=== PATIENT | female | born 1950 | race Caucasian/White ===

== ENCOUNTER 2020-05-17 06:34 | Day surgery (SDC) | payer MEDICARE ==
[~2020-05-17] VITALS: Ht 157.5 cm; Wt 84.5 kg
[2020-05-17] MEDS ORDERED: VENLAFAXINE HCL75 M1 PO (06:52)
[2020-05-17] MEDS ORDERED: VENLAFAXINE HC150 MG PO (06:52)
[2020-05-17] MEDS ORDERED: TEMAZEPAM15 MG PO (06:52)
[2020-05-17] MEDS ORDERED: VITAMIN C60 MG (06:53)
[2020-05-17] MEDS ORDERED: LEVOTHYROXINE137 MCG PO (06:53)
[2020-05-17] MEDS ORDERED: ALPRAZOLAM0.5 MG PO (06:53)
[2020-05-17] MEDS ORDERED: VITAMIN D325 MC2 (06:54)
[2020-05-17] MEDS ORDERED: VITAMIN B122500 MCG PO (06:54)
[2020-05-17] MEDS ORDERED: POTASSIUM99 M1 PO (06:55)
[2020-05-17] MEDS ORDERED: MAGNESIUM30 MG (06:55)
--- NOTE | 2020-05-17 08:16 | NUR ---
05/17/20 0816 Nasreen Ferrer 0812- PT ARRIVES TO PACU AWAKE AND TALKING. RESP EVEN AND UNLABORED. OXYGEN SAT MID TO HIGH 90'S ON 2L VIA NC. PT REPORTS NO PAIN OR NAUSEA. DISCUSSED WITH PT ABOUT PASSING FLATUS IF HER ABD IS CRAMPING. PT STATES UNDERSTANDING.
--- NOTE | 2020-05-18 15:36 | PATH ---
[facility] [address] [place], [place] [address] Signed SPECIMEN(S): A HEPATIC FLEXURE POLYP SPECIMEN SOURCE: A. HEPATIC FLEXURE POLYP CLINICAL HISTORY: Colonoscopy with poss. biopsies. History of colitis, history of bowel obstruction. MICROSCOPIC DESCRIPTION: Histologic sections of all submitted blocks are examined by light microscopy. These findings, together with the gross examination, support the pathologic diagnosis. FINAL PATHOLOGIC DIAGNOSIS: Hepatic flexure polyp: - Tubular adenoma (two fragments). JVR:smh:C2NR GROSS DESCRIPTION: The specimen, labeled "NH, 1," and designated on the requisition "hepatic flexure polyp," is received in formalin and consists of three triplett soft tissue fragments that measure 0.2-0.6 cm in greatest dimension. The specimen is entirely submitted in cassette (A1). AT (under the direct supervision of a pathologist) The Gross Description was prepared using a voice recognition system. The report was reviewed for accuracy; however, sound-alike word errors, addition and/or deletions may occur. If there is any question about this report, please contact Client Services. PERFORMING LABORATORY: The technical component was performed by [employer], [address] [place] [id number] (Lab Aid: Florence Peerz MD; CLIA# [id number]). Professional interpretation was performed by [employer], [facility], [address] [place] [id number]. Diagnostician: Hong Page MD Pathologist Electronically Signed 05/18/2020 PATIENT NAME: JORDY BARBER PATHOLOGY DATE OF : 50 REPORT #: [id number] PHYSICIAN: [facility] PCP: MARCELINO CONDE MD REPORT IS CONFIDENTIAL AND NOT TO BE RELEASED WITHOUT AUTHORIZATION [address] [place], [place] [address] Signed Copies: ~ PATIENT NAME: JORDY BARBER PATHOLOGY DATE OF : 50 REPORT #: [id number] PHYSICIAN: [facility] PCP: MARCELINO CONDE MD REPORT IS CONFIDENTIAL AND NOT TO BE RELEASED WITHOUT AUTHORIZATION
--- NOTE | 2020-05-19 15:19 | OR ---
[facility] [address] [place], [place] [address] Signed DATE OF OPERATION: 05/17/2020 SURGEON: Dahlia Quiñones MD PREOPERATIVE DIAGNOSIS: Colon surveillance, last colonoscopy normal in 2008. POSTOPERATIVE DIAGNOSIS: Small flat polyp at hepatic flexure (excised). PROCEDURE: Total colonoscopy to cecum with cold snare polypectomy x1. ANESTHESIA: Intravenous sedation, fentanyl 150 mcg, Versed 8 mg. INDICATION: This 70-year-old white woman is a patient of Dr. Hong Mak. She last underwent colonoscopy by [facility] in 2008, which was normal. She had undergone colonoscopy in 2002, which showed history of colitis of some sort. She is symptom free currently. She is admitted at this time to undergo colonoscopy. Notably, her COVID test is negative preoperatively. FINDINGS: The prep was excellent. Complete colonoscopy was undertaken to the cecum without question with easy identification of the ileocecal valve and the appendiceal orifice. There was a small flat polyp noted at hepatic flexure, which was excised with cold snare polypectomy technique. The remaining colon was normal. DESCRIPTION OF PROCEDURE: The patient was brought to the endoscopy suite and placed in lateral decubitus position, given intravenous sedation to the point of slurred speech and nystagmus. Digital rectal examination was normal. The Olympus video colonoscope was passed in the rectum and manipulated throughout the colon noting a small flat polyp at the hepatic flexure. This was excised with cold snare technique. The scope was pushed beyond this ultimately to the cecum, the ileocecal valve and appendiceal orifice were normal. Scope was withdrawn from that point and examination showed no abnormality, specifically no additional polyps, diverticular formation, colitis, or cancer. Retroflexed view of the rectum did show a hypertrophied anal papilla. There were no other findings of concern. The scope was removed. The patient was taken to the recovery room in good condition. Electronically Signed By: DAHLIA QUIÑONES MD 05/19/20 1519 PATIENT NAME: JORDY BARBER OPERATIVE REPORT DATE OF : 50 REPORT #: [id number] PHYSICIAN: DAHLIA QUIÑONES MD PCP: MARCELINO MAK MD REPORT IS CONFIDENTIAL AND NOT TO BE RELEASED WITHOUT AUTHORIZATION [facility] [address] [place] [id number] Signed CONCLUDING DIAGNOSIS: Flat polyp x1 excised. PLAN: Recommend a repeat colonoscopy in 5 years sooner if clinically indicated. If pathology report warrants sooner surveillance (dysplasia ) that will be arranged. MD TRAY Haq/MODL /[id number] cc: Marcelino Mak MD Copies: MARCELINO MAK MD ~ Electronically Signed By: DHALIA QUIÑONES MD 05/19/20 1519 PATIENT NAME: JORDY BARBER OPERATIVE REPORT DATE OF : 50 REPORT #: [id number] PHYSICIAN: DAHLIA QUIÑONES MD PCP: MARCELINO MAK MD REPORT IS CONFIDENTIAL AND NOT TO BE RELEASED WITHOUT AUTHORIZATION
== END 2020-05-17 08:50 | disposition home or self-care (01) ==
LOC: DS 06:34 → OPS 06:34 → DS 06:45 → OPS 06:45
PROVIDERS: ATTEND Surgery
PROC: 0DBL8ZX Excision of Transverse Colon, Via Natural or Artificial Opening Endoscopic, Diagnostic (ICD-10-PCS; principal; 2020-05-17 06:45)
DX: Z12.11 Encounter for screening for malignant neoplasm of colon (principal); D12.3 Benign neoplasm of transverse colon; K62.89 Other specified diseases of anus and rectum; N39.3 Stress incontinence (female) (male); E03.9 Hypothyroidism, unspecified; F17.210 Nicotine dependence, cigarettes, uncomplicated; Z79.890 Hormone replacement therapy; Z79.899 Other long term (current) drug therapy; Z87.19 Personal history of other diseases of the digestive system
CPT/HCPCS: 99153; G0500; J2250; J3010; J7121

== ENCOUNTER 2021-07-15 07:22 | Observation (INO) | payer MEDICARE ==
[~2021-07-15] VITALS: Ht 165.1 cm; Wt 61.4 kg
[~2021-07-15 07:22] MED LIST: ALPRAZOLAM0.5 MG PO; LEVOTHYROXINE137 MCG PO; MAGNESIUM30 MG; POTASSIUM99 M1 PO; TEMAZEPAM15 MG PO; VENLAFAXINE HC150 MG PO; VENLAFAXINE HCL75 M1 PO; VITAMIN B122500 MCG PO; VITAMIN C60 MG; VITAMIN D325 MC2
--- NOTE | 2021-07-15 09:19 | NUR ---
0839 PT REPORTS FEELING ANXIOUS AND NERVIOUS, RECIEVED ORDER FOR VERSED FROM DAHLIA TINEO.
--- NOTE | 2021-07-15 14:48 | NUR ---
07/15/21 1447 Corina Orellana 1449 PATIENT ARRIVES TO PACU UNRESPONSIVE TO PAIN. ORAL AIRWAY IN PLACE. RESP EVEN AND UNLABORED, MASK AT 12 LITERS, DECREASED TO 6 LITERS. REQUIRES OCCASIONAL JAW THRUST, HOB ELEVATED.
--- NOTE | 2021-07-15 15:56 | NUR ---
1540 PT BACK TO ROOM FROM PACU AWAKE AND ALERT DENIES PAIN, REPORTS SORENESS IN RT EYE ADVISED NOT TO RUB EYE, PLACED COLD WET WASH CLOTH OVER RT EYE FOR PT COMFORT. DAUGHTER AT BEDSIDE. PT TAKING SIPS OF WATER TOLERATES WELL. PT RESTING COMFORTABLY, WARM BLANKETS PLACED ON PT CALL LIGHT WITHIN REACH.
--- NOTE | 2021-07-15 17:05 | NUR ---
650ML OF CLEAR YELLOW URINE DRAINED FROM LUGO BAG. 10ML OF PINK FLUID DRAINED FROM MAIRA DRAIN.
--- NOTE | 2021-07-15 17:42 | NUR ---
1730 PT TRANSFERED TO MED SURG, DENIES PAIN AND NAUSEA, SHE CONTINUES TO COMPLAIN OF PAIN AND SCRATCHY FEELING TO HER RT EYE. DRESSING CLEAN AND DRY, MINIMAL DRAINAGE FROM MAIRA DRAIN, LUGO CATH PATENT.
--- NOTE | 2021-07-15 17:53 | NUR ---
IV SALINE LOCKED, 200ML OF IV FLUID GIVEN IN DAY SURGERY,
--- NOTE | 2021-07-15 18:43 | NUR ---
PT BROUGHT TO ROOM FROM PACU. PT ALERT, ORIENTED, DRESSING AND MAIRA DRAIN IN PLACE. SMALL AMOUNT SANGUINOUS DRAINAGE NOTED. CRUSHER MACHINE OPERATOR REPORTED THE PT SCRATCHED HER R EYE IN RECOVERY, VERBAL ORDER FROM DR QUIÑONES FOR ONE TIME PROPERACAINE DROPS TO BE PLACE DIN PT'S R EYE. PT REQUESTING TO HAVE LUGO REMOVED AND TO WALK AROUND ROOM. DAUGHTER AT BEDSIDE.
--- NOTE | 2021-07-15 19:15 | NUR ---
PER PT REQUEST, LUGO CATH D/C'D. PT TOLERATED WELL. PT UP, STEADY ON HER FEET, WALKED TO BATHROOM, STANDBY ASSIST ONLY. WAS ABLE TO PASS GAS, BUT NOT ABLE TO VOID. PT BACK IN BED, IS FEELING HOT AND SLIGHTLY NAUSEATED. ZOFRAN AND FAN GIVEN. PROPARACAINE EFFECTIVE IN RELIEVING R EYE PAIN. MINIMAL SANGUINOUS DRAINAGE NOTED IN LORENZA DRAIN. PT REPORTING SOME PAIN AND IS REQUESTING PAIN MEDS.
--- NOTE | 2021-07-16 02:59 | NUR ---
REQUESTS PAIN MED FOR PAIN TO THROAT. DESCRIBES THE PAIN THROBBING. DENIES ANY NUMBNESS OR TINGLING.
--- NOTE | 2021-07-16 03:43 | NUR ---
PT'S CPOX WAS BEEPING. PT'S O2 WAS 88%. PLACED PT ON 2LNC, SHE IS NOW AT 91%. SBA TO RESTROOM AND BACK TO BED. PT DENIES FURTHER NEEDS. CALL LIGHT IS CLOSE. IV IS INFUSING FINE.
--- NOTE | 2021-07-16 05:44 | NUR ---
PT HAS BEEN ON CONTINOUS O2 SAT MONITORING ALL SHIFT. DENIES ANY SWALLOWING ISSUES. DENIES ANY NUMBNESS OR TINGLING. WAS MEDICATED X2 FOR C/O THROBBING PAIN TO THROAT AND HUTTON. HOB ELEVATED 45 DEGREES ALL SHIFT. HAS GOTTEN OOB TO BR MULTIPLE TIMES WITHOUT ISSUE.
--- NOTE | 2021-07-16 07:30 | NUR ---
THIS RN RECEIVED SHIFT REPORT FROM TRAVEL MCKENZIE RN. PATIENT AWAKE IN BED WATCHING TV. PATIENT DENIES ANY CARE NEEDS AT THIS TIME. CALL LIGHT IS IN REACH.
--- NOTE | 2021-07-16 08:25 | NUR ---
PATIENT GIVEN ALL AM MEDS. PATIENT DENIES NEEDS FOR PAIN OR ANXIETY MEDS. AM ASSESSMENT COMPLETE. SURGICAL SITE C/D/I. NO PROBLEMS SWALLOWING OR SHORTNESS OF BREATH. CALL LIGHT IN REACH AND BREAKFAST SERVED.
[2021-07-16] MEDS ORDERED: LEVOTHYROXINE125 MCG PO (09:11)
[2021-07-16] MEDS ORDERED: TEMAZEPAM30 MG PO (09:12)
--- NOTE | 2021-07-16 10:45 | NUR ---
PATIENT'S PAIN GONE AFTER BARRETT HINOJOSA GAVE ORAL PAIN MEDS AT 0944. PATIENT DENIES ANY OTHER CARE NEEDS AT THIS TIME. PATIENT WILL BE DICHARGED TODAY.
[2021-07-16] MEDS ORDERED: OXYCODON-ACETA1 EAC2 PO (12:04)
[2021-07-16] MEDS ORDERED: ACETAMINOPHEN500 MG PO (12:04)
[2021-07-16] MEDS ORDERED: NICOTINE1 EAC2 TD (12:04)
[2021-07-16] MEDS ORDERED: CALCIUM CARBON200 MG PO (12:05)
--- NOTE | 2021-07-24 16:30 | OR ---
[facility] [address] [place], [place] [address] Signed DATE OF OPERATION: 07/15/2021 SURGEON: Dahlia Quiñones MD PREOPERATIVE DIAGNOSES: 1. Symptomatic large left thyroid mass; FNA insufficient tissue. 2. Multiple lung nodules, unknown etiology. POSTOPERATIVE DIAGNOSES: 1. 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 PROLONGED COMPLICATED AND DIFFICULT 2. Total thyroidectomy. 3. Autotransplant probable parathyroid tissue to right sternocleidomastoid muscl ANESTHESIA: General endotracheal, Dahlia Nicolas CRNA INDICATIONS: This 71-year-old white woman is a patient of Miranda Smith. She is on thyroid replacement therapy, long standing. She recently underwent a screening low-dose chest CT as she does smoke about a pack of cigarettes a day and has for many years. This showed infiltrative changes of the lungs bilaterally as well as enlarged left thyroid mass. The repeat low-dose chest CT scan was performed a month later per radiologist recommendation, which showed resolution of the infiltrative changes, but bilateral pulmonary nodules suggestive of metastatic disease. Her thyroid mass is quite large and noted to cause deviation of the trachea or at least narrowing of it. The right lobe appeared reasonably normal. Palpation of the thyroid mass shows it to be quite bulky. There is some associated voice change that she notes, though not hoarseness per se. The thyroid function tests have shown normal T4 and T3, but diminished TSH; her thyroid replacement dose has been decreased lately. I performed ultrasound-guided fine-needle aspiration biopsy of the left thyroid lobe, which showed inadequate specimen. This was slightly amazing considering the mass was quite bulky and needle certainly pass through the abnormality. Ultrasound examination had shown small nodules of the right lobe, but the dominant nodule on the left was certainly greater than 4 cm. Electronically Signed By: DAHLIA QUIÑONES MD 07/24/21 5023 PATIENT NAME: JORDY BARBER OPERATIVE REPORT DATE OF : 50 REPORT #: [id number] PHYSICIAN: DAHLIA QUIÑONES MD PCP: MIRANDA SMITH PAC REPORT IS CONFIDENTIAL AND NOT TO BE RELEASED WITHOUT AUTHORIZATION [facility] [address], [place] [address] scan of the chest with formal technique including IV contrast was not obtained as had been anticipated; abdominal and pelvic CT scan were performed, which showed no evidence of problematic lesions to account for pulmonary metastases. The patient is symptomatic regarding the thyroid mass. I have recommended left thyroid lobectomy with frozen pathology to be obtained and possible total thyroidectomy depending on those findings. It is my suspicion that the pulmonary lesions are related to this thyroid mass as it has been rapid in its onset and this despite long-standing thyroid replacement therapy. I discussed with the patient and her daughter the risk of bleeding, infection, cosmetic deformity, failure to cure the problem, recurrent and external laryngeal nerve injury, hypoparathyroidism either short-term or long-term, as well as other unforeseen complications given her smoking history. Understanding all this, she wished to proceed. FINDINGS: The mass was clearly malignant upon inspection. The tumor had desmoplastic continuity to the sternal thyroid muscle, which was resected in continuity with it. The sternohyoid muscle was able to be . It was impressively dense in its attachments posteriorly. There was no invasion to the jugular or carotid vessels. The superior pole on the left side extended high up into the neck and lower somewhat below the clavicle. A small portion of the lesion had to be left in situ as resection of that lobe would necessitate recurrent laryngeal nerve excision and given her metastatic disease (probably) that would be problematic. The right lobe was quite small indeed. Two parathyroid glands were identified posteriorly and were left in situ. Some parathyroid tissue from the left side was noted as excised and later we planted into the right sternocleidomastoid muscle. DESCRIPTION OF PROCEDURE: The patient was brought to the operating room and given a general endotracheal anesthetic. A shoulder roll was placed. A Arroyo catheter was placed. Her arms were placed at the side. Mild neck extension was maintained with a shoulder roll and position of the bed to a tejal lounge position. The neck was prepared with a chlorhexidine solution and draped sterilely. A natural skin crease was used for the incision. This was undertaken with a 15 blade, extending from the medial border of the sternocleidomastoid muscle bilaterally. Dissection was carried through the dermis with sharp dissection and electrocautery used for the subcutaneous tissue and platysmal layer. Superior and inferior flaps were developed with blunt and electrocautery dissection. The strap muscles including the sternohyoid and sternothyroid were tensely distended against the left lobe, which was quite bulky Electronically Signed By: DAHLIA QUIÑONES MD 07/24/21 7456 PATIENT NAME: JORDY BARBER OPERATIVE REPORT DATE OF : 50 REPORT #: [id number] PHYSICIAN: DAHLIA QUIÑONES MD PCP: MIRANDA SMITH PAC REPORT IS CONFIDENTIAL AND NOT TO BE RELEASED WITHOUT AUTHORIZATION [address] [address] Signed indeed. The midline avascular plane was identified and the sternohyoid muscle free with blunt and electrocautery dissection. The sternothyroid muscle, however, was densely contiguous with the anterior aspect of the mass. Examination of the mass showed it almost certainly to be malignant. It is quite firm and although spongy in some areas, rock-hard in others. It was uncertain if resection would even be possible. The appearance was somewhat suggestive, though not diagnostic of anaplastic carcinoma, which of course is invariably fatal. With meticulous care, lateral dissection was undertaken, mindful of position of the left carotid and left jugular veins. Superior dissection was undertaken and although quite densely inflammatory and adherent to surrounding structures, multiple clips used to secure small blood vessels. The left upper pole extended cephalad further than usual. This was meticulously dissected free. Attention was turned towards the lateral aspect and inferior aspect. With similar dissection, more and more mobility could be afforded to lesion. It appeared uncertain that the lesion could truly be excised. On that basis, a small nodular portion of it not far from the superior aspect of the isthmus was excised with cold knife and passed for frozen pathology. Frozen pathology returned under the review of Dr. 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 Mindful that the lesion itself was distorting the trachea and she was quite symptomatic from it. This deemed advisable to resect if possible. With similar technique as described and meticulous dissection so as to avoid important structures nearby, small blood vessels and adhesions were freed and secured with clips. With a fair amount of effort and time, the left thyroid lobe was able to be rotated towards the midline. The posterior elements were meticulously dissected free as well. There appeared to be a segment of tumor, which was likely posterior to the recurrent nerve as it was identified entering into the larynx. That area was deemed appropriate to leave in situ under the circumstances. Medial aspect of the left lobe was freed with usual technique and clips applied instead of silk ties as is usually my approach considering the density of the left thyroid lobe itself. Inferior mobilization was undertaken as well. Ultimately, the posterior aspect of the tumor medial to the posterior elements was dissected free with meticulous care using electrocautery ultimately encountering the trachea. The tracheal plane was well identified and although tumor did not grossly penetrate into it that I could tell, did have a granular surface indicative of chronic inflammatory change. The wound was packed and attention turned towards the right thyroid lobe. This lobe was entirely normal and indeed was rather small. Sharp dissection was used to free the strap muscles from the right lobe, which was easily identified and application Electronically Signed By: DAHLIA QUIÑONES MD 07/24/21 1630 PATIENT NAME: JORYD BARBER OPERATIVE REPORT DATE OF : 50 REPORT #: [id number] PHYSICIAN: DAHLIA QUIÑONES MD PCP: MIRANDA SMITH PAC REPORT IS CONFIDENTIAL AND NOT TO BE RELEASED WITHOUT AUTHORIZATION [facility] [address], [place] [address] Signed of 4-0 silk ties and small clips to the superior pole and inferior pole and midportion of the thyroid undertaken. The thyroid lobe was rotated to the midline more fully. The posterior elements allowed to remain in situ and the parenchyma divided at the ligament of Moss with sharp dissection. This freed the entire specimen completely. The wound was packed with gauze. Examination of the thyroid in total showed one small nodule likely to represent parathyroid tissue, probably from the left lower pole. This was morcellated and underwent implantation in the right sternocleidomastoid muscle with security of the muscle fibers with 3-0 Vicryl. A large clip was applied to the area for future reference as necessary. Irrigation was undertaken with saline solution and hemostasis was quite good overall. A Gel-Foam and Tisseel (fibrin glue) was applied to the superior polar areas bilaterally as well as the divided parenchyma on the left and right sides. Irrigation was undertaken more fully. The frozen pathology (#2) was not performed as the pathologist was no longer on the premises. Plans were then made for closure. The midline strap muscles were reapproximated with interrupted 2-0 Vicryl and a 7 mm flat Brayan drain was secured into the left and right sides. Not mentioned previously was the use of the Tisseel with the Aerosolizer device, which provided a fair amount of competence as to good hemostasis in the area. The strap muscles were reapproximated with interrupted 2-0 Vicryl and platysmal layer reapproximated with interrupted 3-0 Vicryl. The skin was closed with a running subcuticular 3-0 Vicryl bilaterally and drain secured with a nylon stitch and applied to bulb suction, having been brought out the midportion of the wound. The patient was extubated without problem and transferred to the recovery room in good condition. The operation was extremely prolonged and difficult, but was accomplished safely and without known complications. MD TRAY Haq/HEATHER /[id number] cc: Miranda Smith Electronically Signed By: DAHLIA QUIÑONES MD 07/24/21 1630 PATIENT NAME: JORDY BARBER OPERATIVE REPORT DATE OF : 50 REPORT #: [id number] PHYSICIAN: DAHLIA QUIÑONES MD PCP: MIRANDA SMITH PAC REPORT IS CONFIDENTIAL AND NOT TO BE RELEASED WITHOUT AUTHORIZATION [facility] [address], [place] [address] Signed Jersey Sigala MD, PH.D. Copies: JERSEY SIGALA ~ Electronically Signed By: DAHLIA QUIÑONES MD 07/24/21 1630 PATIENT NAME: JORDY BARBER OPERATIVE REPORT DATE OF : 50 REPORT #: [id number] PHYSICIAN: DAHLIA QUIÑONES MD PCP: MIRANDA SMITH PAC REPORT IS CONFIDENTIAL AND NOT TO BE RELEASED WITHOUT AUTHORIZATION
--- NOTE | 2021-07-28 16:46 | PATH ---
[facility] [address] [place], [place] [address] Signed SPECIMEN(S): A PORTION OF ISTHMUS SPECIMEN(S): B LEFT THYROID LOBE SPECIMEN(S): C LEFT SUPERIOR POLE LYMPH NODE SPECIMEN(S): D THYROID TUMOR SPECIMEN SOURCE: A. PORTION OF ISTHMUS B. LEFT THYROID LOBE C. LEFT SUPERIOR POLE LYMPH NODE D. THYROID TUMOR CLINICAL HISTORY: Thyroid mass. FROZEN SECTION DIAGNOSIS: A. 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 Carlyn Franco M.D. 07/15/21, 11:28 a.m. Frozen section diagnosis called to Dr. French. The Gross Description was prepared using a voice recognition system. The report was reviewed for accuracy; however, sound-alike word errors, addition and/or deletions may occur. If there is any question about this report, please contact Client Services. FINAL PATHOLOGIC DIAGNOSIS: A. Isthmus, biopsy: - Malignant spindle cell neoplasm, final classification pending consultation. - See Comment. B. Thyroid, left lobe, hemithyroidectomy: - Malignant spindle cell neoplasm, final classification pending consultation. - Tumor size: 6.3 x 4.4 x 3.2 cm. - Tumor necrosis: Present (10-20%). - Mitotic rate: 18 per 10 hpf. - Angioinvasion: Present, extensive. - Extra thyroidalextension: Present, macroscopic and histologically confirmed: Invading strap muscles. - Margin status: Margins involved by carcinoma. - Two parathyroid glands present. - One lymph node with no evidence of malignancy. - See Comment. C. 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 - Skeletal muscle present, focally surrounded by tumor. - See Comment. D. Thyroid tumor, excision: - Malignant spindle cell neoplasm, final classification pending consultation. - See Comment. COMMENT: Sections demonstrate an infiltrative neoplasm comprised of spindled to ovoid cells with different growth patterns, including nests and irregular fascicles. Abundant tumor cell necrosis is present. The tumor has a rich vascular pattern and extensive vascular invasion is identified. The tumor entraps non-neoplastic thyroid follicles, but no background follicular or papillary thyroid carcinoma is identified. A panel of immunohistochemical stains (with appropriately staining controls) were performed. The tumor cells are positive for TLE1 and have patchy positivity for CD99, CD56, and SMA. The tumor cells are negative for ZACK, BCL2, pancytokeratin (AE1/AE3), CHRISSY, PAX8, TTF1, CK7, thyroglobulin, calcitonin, synaptophysin, S100, SOX10, CD34, CD31, STAT6, and Desmin. Ki-67 demonstrates an irregular pattern of staining, ranging from 10- 30% tumor cell positivity. 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 The case will be sent out for expert consultation including likely FISH studies and the results will be reported in an addendum. As part of [facility] Quality Improvement Program, this case was reviewed in consultation with multiple members of our pathology staff. Preliminary results were discussed with Dr. French on 07/22/21. NAL:ANNE:cml:C1NR MICROSCOPIC EXAMINATION: Histologic sections of all submitted blocks are examined by light microscopy. These findings, together with the gross examination, support the pathologic diagnosis. Note, PAX8 was performed on both blocks B1 and B7. GROSS DESCRIPTION: Four specimens are received in four containers, labeled "Heidi Barber." A. The specimen, labeled "SunilHeidi barahona," and designated on the requisition "portion of isthmus assess for anaplastic cancer," is received fresh for frozen PATIENT NAME: HEIDI BARBER PATHOLOGY DATE OF : 50 REPORT #: [id number] PHYSICIAN: BOLA HELTON PCP: MIRANDA SMITH PAC REPORT IS CONFIDENTIAL AND NOT TO BE RELEASED WITHOUT AUTHORIZATION [address] [address] Signed section diagnosis and consists of triplett-red soft tissue fragment that is 0.6 x 0.5 x 0.2 cm. The specimen is entirely submitted for frozen section resubmitted as received in cassette (A1). B. The specimen, labeled "Heidi Barber," and designated on the requisition "thyroid left lobe (single suture bagley the pyramidal lobe), double stitch bagley right normal lobe," is received fresh and placed into formalin and consists of a 64 g, oriented portion of thyroid. A double suture identifies the right normal lobe, which is 5.2 x 2.0 x 1.6 cm. A single suture identifies the pyramidal lobe and is 1.4 x 1.1 x 0.7 cm. The isthmus is a 2.8 x 2.5 x 2.6 cm. The left lobe is 6.7 x 3.7 x 3.4 cm. The external surface is pink with adherent red membranous tissue and possible skeletal muscle on the anterior aspect of the left lobe. The left lobe is markedly indurated and multilobulated. The posterior aspect of the specimen displays areas of disruption and irregularity The specimen is inked as follows: Anterior-superior blue, anterior-inferior green, and posterior black. The specimen is serially sectioned from left to right revealing a 6.3 x 4.4 x 3.2 cm, pale yellow-red, multilobulated and ill-defined mass. This mass involves the left lobe, isthmus, right lobe, and pyramidal lobe. The mass is 0.1 cm from the left anterior superior soft tissue resection margin, 0.1 cm from the left anterior inferior soft tissue resection margin, 0.1 cm from the anterior soft tissue resection margin on the isthmus, abuts the posterior soft tissue resection margin on the isthmus and left lobe, is 0.1 cm from the anterior superior and anterior inferior soft tissue resection margins on the right lobe, and is 0.5 cm from the posterior soft tissue resection margin on the right lobe. Possible gross extension into the skeletal muscle on the anterior inferior left lobe is submitted in cassette B1-B2. Uninvolved thyroid is grossly identified in the right lobe and is deep red and rubbery. Civil Project Engineer sections are submitted in 10 cassettes. Cassette summary: (B1-B2) mass to skeletal muscles, left inferior lobe (B3) mass to anterior superior soft tissue resection margin, left lobe (B4-B5) mass to posterior soft tissue resection margin, left lobe (B6) mass within isthmus (B7) mass within isthmus and pyramidal lobe (B8-B9) mass within right lobe (B10) uninvolved thyroid, right lobe C. The specimen, labeled "Heidi Barber, left superior pole," is received in PATIENT NAME: HEIDI BARBER PATHOLOGY DATE OF : 50 REPORT #: [id number] PHYSICIAN: BOLA HELTON PCP: MIRANDA SMITH PAC REPORT IS CONFIDENTIAL AND NOT TO BE RELEASED WITHOUT AUTHORIZATION [facility] [address], [place] [address] Signed formalin and consists of 1.3 x 0.7 x 0.5 cm, pink-white, indurated tissue fragment. The specimen is inked, sectioned, and entirely submitted in cassette (C1). D. The specimen, labeled "Heidi Barber, thyroid tumor," is received in formalin and consists of 6.2 x 5.5 x 1.8 cm aggregate of pale pink, rubbery and friable soft tissue. Serially sectioning reveals a pink-red, variegated cut surface. Civil Project Engineer sections are submitted in cassettes (D1-D6). FB (under the direct supervision of a pathologist) ADDITIONAL NOTES: Immunohistochemical and/or in situ hybridization studies were performed on this case with the appropriate positive controls that react as expected. This test was developed and its performance characteristics determined by [facility]. It has not been cleared or approved by the U.S. Food and Drug Administration. The FDA has determined that such clearance or approval is not necessary. This test is used for clinical purposes. It should not be regarded as investigational or for research. [facility] is certified under the Clinical Laboratory Improvement Amendments of 1988 (CLIA) as qualified to perform high complexity clinical laboratory testing. This assay has not been validated for specimens that have been decalcified. The technical component was performed by [facility], [address] [place] [address] (Pot Press Operator: Florence Perez MD; CLIA# [id number]). Professional interpretation [facility] [place] [address] (CLIA# [id number]). PERFORMING LABORATORY: Frozen section performed at [facility], [address] [place] [address] (CLIA# [id number]). The technical component was performed by [facility], [address] [place] [address] (Pot Press Operator: Florence Perez MD; CLIA# [id number]). [facility], [address] [place] [address] (CLIA# [id number]). Diagnostician: Carlyn Franco MD Pathologist PATIENT NAME: HEIDI BARBER PATHOLOGY DATE OF : 50 REPORT #: [id number] PHYSICIAN: BOLA HELTON PCP: MIRANDA SMITH PAC REPORT IS CONFIDENTIAL AND NOT TO BE RELEASED WITHOUT AUTHORIZATION [place] [address] Signed Electronically Signed 07/28/2021 Copies: ~ PATIENT NAME: SUNILHEIDIALEJANDRO BOSS PATHOLOGY DATE OF : 50 REPORT #: [id number] PHYSICIAN: BOLA PATHOLOGY PCP: MIRANDA SMITH PAC REPORT IS CONFIDENTIAL AND NOT TO BE RELEASED WITHOUT AUTHORIZATION
== END 2021-07-16 13:35 | disposition home or self-care (01) ==
LOC: DS 07:22 → DSVR 15:22 → MS 17:40
PROVIDERS: ADMIT Surgery; ATTEND Surgery
PROC: 0GBJ0ZZ Excision of Thyroid Gland Isthmus, Open Approach (ICD-10-PCS; 2021-07-15)
PROC: 0GSR0ZZ Reposition Parathyroid Gland, Open Approach (ICD-10-PCS; 2021-07-15)
PROC: 0GTK0ZZ Resection of Thyroid Gland, Open Approach (ICD-10-PCS; principal; 2021-07-15 07:30)
DX: C73 Malignant neoplasm of thyroid gland (principal); E03.8 Other specified hypothyroidism; F17.210 Nicotine dependence, cigarettes, uncomplicated; R91.8 Other nonspecific abnormal finding of lung field
CPT/HCPCS: 00320; 36415; 80053; 88305; 88307; 88341; 88342; 88360; G0378; J0131; J0171; J0330; J0690; J1100; J1720; J1885; J2250; J2405; J2704; J2765; J3010; J7121

== ENCOUNTER 2021-09-01 02:38 | Emergency (ER) | payer MEDICARE ==
[~2021-09-01] VITALS: Ht 165.1 cm; Wt 63.0 kg
[~2021-09-01 02:38] MED LIST changes: +ACETAMINOPHEN500 MG PO; +CALCIUM CARBON200 MG PO; +LEVOTHYROXINE125 MCG PO; +NICOTINE1 EAC2 TD; +OXYCODON-ACETA1 EAC2 PO; +TEMAZEPAM30 MG PO
--- OUTSIDE RECORDS SUMMARY | 2021-09-01 02:40 | XMS ---
PreManage Notification: JORDY BARBER Security Apple Picker Events No recent Security Events currently on file CRITERIA MET - [facility] CARE PROVIDERS MIRANDA SMITH Physician Clinic Lpn Current PHONE: Unknown Guevara has no Care Guidelines for this patient. EBryanna VISIT COUNT (12 MO.) 1 NORY Peralta TOTAL 1 NOTE: Visits indicate total known visits. ED/UCC VISIT TRACKING (12 MO.) 09/01/2021 02:38 N[facility] [place] TYPE: Emergency COMPLAINT: - RIGHT SIDE PAIN INPATIENT VISIT TRACKING (12 MO.) 07/15/2021 15:22 N[facility] [place] TYPE: Observation COMPLAINT: - LEFT THYROID LOBECTOMY,POSS TOTAL THYROIDECTOMY DIAGNOSES: - Other nonspecific abnormal finding of lung field - Nontoxic single thyroid nodule - Nicotine dependence, cigarettes, uncomplicated - Other specified hypothyroidism - Malignant neoplasm of thyroid gland [email or web address]
[2021-09-01] MEDS ORDERED: OXYCODONE HCL5 MG PO (05:16)
[2021-09-01] MEDS ORDERED: LIDODERM1 EACH TOP (05:16)
--- NOTE | 2021-09-04 17:07 | EKG ---
[facility] [address] [facility] [place] [address] Signed Normal sinus rhythm Possible Left atrial enlargement Borderline ECG No previous ECGs available Confirmed by MEGAN VERA MD ([id number]) on 09/04/2021 5:07:39 PM Electronically Signed By: MEGAN VERA MD 09/04/21 1707 PATIENT NAME: JORDY BARBER Electrocardiogram DATE OF : 50 PHYSICIAN: MEGAN VERA MD REPORT #: [id number] REPORT IS CONFIDENTIAL AND NOT TO BE RELEASED WITHOUT AUTHORIZATION
== END 2021-09-01 05:45 | disposition home or self-care (01) ==
LOC: ED 02:38
DX: M54.6 Pain in thoracic spine (principal); F17.200 Nicotine dependence, unspecified, uncomplicated; Z79.899 Other long term (current) drug therapy
CPT/HCPCS: 36415; 71045; 80053; 84484; 85025; 85379; 85730; 93005; 93010; 96374; 96375; 99284-25; J1170; J2270; J2405

== ENCOUNTER 2021-09-13 07:09 | Day surgery (SDC) | payer MEDICARE ==
[~2021-09-13] VITALS: Ht 165.1 cm; Wt 58.0 kg
[~2021-09-13 07:09] MED LIST changes: +LEVOFLOXACIN500 MG PO; +LIDODERM1 EACH TOP; +LOVENOX80 MG/0.8 SQ; +OXYCODONE HCL5 MG PO
[2021-09-13] MEDS ORDERED: ACETAMINOPHEN500 MG PO (09:41)
[2021-09-13] MEDS ORDERED: IBUPROFEN600 MG PO (09:41)
--- NOTE | 2021-09-13 10:01 | NUR ---
PT ALERT, ORIENTED AND SUPPORTED BY HER DAUGHTER RACHID. PT FEELS THIS WILL HELP HER IN HER ON-GOING GTZ WITH CANCER.ALL QUESTIONS ASKED ANSWERED, RACHID WILL REMAIN FOR DC. PT REQUESTED PRAYER, WILL FOLLOW NEEDED
--- NOTE | 2021-09-13 10:37 | NUR ---
09/13/[address] [place], [place] [address]Tyra acosta 0916 PT ARRIVED IN PACU SLEEPY WITH NO C/O'S. 0930 VISITING WITH STAFF. NO C/O'S. 0998 DR AT BEDSIDE. ALL QUESTIONS ANSWERED. 1000 GETTING DRESSED WITH STAND BY ASSIST. DC INSTRUCTIONS GIVEN. INSTRUCTED ON HOW TO FLUSH PEG TUBE AND GIVEN SYRINGE TO FLUSH IT WITH. ALL DAUGHTER AND PT'S QUESTIONS ANSWERED. 1016 LEFT VIA W/C.
--- NOTE | 2021-09-14 11:40 | OR ---
[facility] [address] [place], [place] [address] Signed DATE OF OPERATION: 09/13/2021 SURGEON: Dahlia Quiñones MD PREOPERATIVE DIAGNOSES: 1. Progressive inanition related to radiation therapy and chemotherapy. 2. 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 3. 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 Ongoing anticoagulation (Lovenox). POSTOPERATIVE DIAGNOSES: 1. Progressive inanition related to radiation therapy and chemotherapy. 2. 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 3. 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 Ongoing anticoagulation (Lovenox). PROCEDURES: 1. Upper endoscopy. 2. Percutaneous endoscopic gastrostomy tube placement. ANESTHESIA: Propofol infusion; preoperative antibiotic Ancef 2 g. INDICATIONS: This 71-year-old white woman is a patient of KATHERYN Ackerman and underwent a total thyroidectomy for a very large left thyroid mass several weeks ago with known multiple pulmonary lesions consistent with metastatic disease. 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 Postoperatively, she suffered an extensive thrombus of the left jugular innominate with the clot extending into the superior vena cava and has been on therapeutic Lovenox 80 mg subcutaneously b.i.d. since that time. She has been evaluated by Dr. Sigala and Dr. Dunn and is undergoing palliative chemo-radiation therapy. She has had progressive inanition related to difficulty swallowing, no doubt related to the therapeutic affects of radiation therapy. Electronically Signed By: DAHLIA QUIÑONES MD 09/14/21 1140 PATIENT NAME: JORDY BARBER OPERATIVE REPORT DATE OF : 50 REPORT #: [id number] PHYSICIAN: DAHLIA QUIÑONES MD PCP: MIRANDA SMITH PAC REPORT IS CONFIDENTIAL AND NOT TO BE RELEASED WITHOUT AUTHORIZATION [facility] [address] [place], [place] [address] Signed She has been recommended to have a feeding gastrostomy considering her issues and probable progression of poor oral intake. She has had weight loss, though she is still able to swallow generally, it has been progressively more difficult for her. We discussed the approaches of gastrostomy placement including percutaneous endoscopic gastrostomy (preferred) as well as possible open procedure; she does have a low midline incision extending from the umbilicus to the symphysis pubis. The risks of bleeding, infection, malplacement of the tube, dysfunction of the tube, need for open procedure and other unforeseen complications have all been reviewed with the patient and her daughter. They understand and wished to proceed. FINDINGS: Endoscopic evaluation showed chronic gastritis and duodenitis, but no sign of gastric outlet obstruction, no sign of finding to contraindicate placement of a percutaneous gastrostomy tube. Impression of the anterior abdominal wall and transillumination was optimal. The PEG tube was placed without known complication. She tolerated well. DESCRIPTION OF PROCEDURE: The patient was brought to the operating room, placed in the supine position, arms at the side. Preoperative antibiotic Ancef was given. After satisfactory intravenous sedation with propofol infusional technique, an Olympus video upper endoscope was passed into the hypopharynx. The vocal cords were visualized. The hypopharyngeal area was chronically and subacutely inflamed. There was no sign of obstructing mass. The scope was advanced to the esophagus without problem throughout its length, it showed mild inflammation. Scope was passed through the GE junction without problem. Stomach was insufflated. Rugal folds were normal. Antrum was mildly chronically inflamed. Pylorus was normal, scope was passed through into the duodenum, which was also normal except for chronic inflammatory change. The scope was withdrawn to the stomach and transillumination easily noted. Anterior gastric wall showed a deep impression consistent with no intervening viscus between the abdominal wall in the stomach. The area deemed optimal for placement was marked with an impression. The area of the abdominal wall was prepared sterilely with a Betadine solution and draped sterilely. A 1% lidocaine was injected locally. Using a thin needle passage through the abdominal wall into the stomach under direct visualization showed easy passage of the needle. This was substituted for the enclosed angiocatheter, which was passed into the stomach similarly with ease. The looped wire from the [employer] PEG tube kit was passed through the angiocatheter. Using the enclosed snare device in the kit, the looped wire was grasped and withdrawn upon removal Electronically Signed By: DAHLIA QUIÑONES MD 09/14/21 1140 PATIENT NAME: JORDY BARBER OPERATIVE REPORT DATE OF : 50 REPORT #: [id number] PHYSICIAN: DAHLIA QUIÑONES MD PCP: MIRANDA SMITH PAC REPORT IS CONFIDENTIAL AND NOT TO BE RELEASED WITHOUT AUTHORIZATION [address] [address] Signed of the scope entirely off the mouth. The site was then incised with an 11 blade. The gastrostomy tube with a looped tip was secured in the appropriate way to the looped wire and the wire withdrawn through the mouth in a "pole" technique. The catheter was brought through the abdominal wall with steady pressure and withdrawn thoroughly. The scope was then advanced to the esophagus and examination showed the prieto of the G-tube to be in the stomach wall relatively securely. This was snugged up a bit. This secured flange was passed over the tube as well as the regulator device and the tube was trimmed to appropriate length and attached to the connector. Irrigation of the tube with saline showed good flow through the tube. Air was suctioned free and the scope was withdrawn. Examination showed a few scuffed areas of the stomach and esophagus from pulling of the device through, but no sign of bleeding or other problem. The flange was secured at approximately 3 cm and secured with an 0-nylon tie to the flange. Application of bacitracin to the operative site had been undertaken prior to securing the flange. Re-examination of the stomach showed no abnormality. The scope was withdrawn after aspirating insufflated air. Sterile gauze and Opsite were applied to the operative site. The patient was ultimately taken to the recovery room in good condition. Blood loss was minimal. MD TRAY Haq/HEATHER /[id number] cc: Jersey Sigala MD, PH.D. Miranda Smith P.A. Kendrick Dunn MD Electronically Signed By: DAHLIA QUIÑONES MD 09/14/21 1140 PATIENT NAME: JORDY BARBER OPERATIVE REPORT DATE OF : 50 REPORT #: [id number] PHYSICIAN: DAHLIA QUIÑONES MD PCP: MIRANDA SMITH PAC REPORT IS CONFIDENTIAL AND NOT TO BE RELEASED WITHOUT AUTHORIZATION [facility] [address] [place], [place] [address] Signed Copies: JERSEY SIGALA ROBERT C MD ~ Electronically Signed By: DAHLIA QUIÑONES MD 09/14/21 1140 PATIENT NAME: JORDY BARBER OPERATIVE REPORT DATE OF : 50 REPORT #: [id number] PHYSICIAN: DAHLIA QUIÑONES MD PCP: MIRANDA SMITH PAC REPORT IS CONFIDENTIAL AND NOT TO BE RELEASED WITHOUT AUTHORIZATION
== END 2021-09-13 10:16 | disposition home or self-care (01) ==
LOC: DS 07:09
PROVIDERS: ATTEND Surgery
PROC: 0DH63UZ Insertion of Feeding Device into Stomach, Percutaneous Approach (ICD-10-PCS; principal; 2021-09-13 08:45)
DX: K29.50 Unspecified chronic gastritis without bleeding (principal); K29.80 Duodenitis without bleeding; T66.XXXS Radiation sickness, unspecified, sequela; R64 Cachexia; R13.19 Other dysphagia; C73 Malignant neoplasm of thyroid gland; C78.00 Secondary malignant neoplasm of unspecified lung; E89.0 Postprocedural hypothyroidism; I82.C12 Acute embolism and thrombosis of left internal jugular vein; Z68.23 Body mass index [BMI] 23.0-23.9, adult; Z87.891 Personal history of nicotine dependence; Z79.01 Long term (current) use of anticoagulants; Z92.21 Personal history of antineoplastic chemotherapy; Z92.3 Personal history of irradiation; Y84.2 Radiological procedure and radiotherapy as the cause of abnormal reaction of the patient, or of later complication, without mention of misadventure at the time of the procedure
CPT/HCPCS: J0690; J1644; J2704; J7121

== ENCOUNTER 2021-09-22 12:37 | Emergency (ER) | payer MEDICARE ==
[~2021-09-22] VITALS: Ht 165.1 cm; Wt 62.5 kg
[~2021-09-22 12:37] MED LIST changes: +IBUPROFEN600 MG PO
--- OUTSIDE RECORDS SUMMARY | 2021-09-22 12:42 | XMS ---
PreManage Notification: JORDY BARBER Security Printing Assistant Events No recent Security Events currently on file CRITERIA MET - [facility] - 2 Visits in 30 Days CARE PROVIDERS MIRANDA SMITH Physician Commercial Energy Auditor Current PHONE: Unknown Guevara has no Care Guidelines for this patient. Donato VISIT COUNT (12 MO[address] 2 [facility] TOTAL 2 NOTE: Visits indicate total known visits. ED/UCC VISIT TRACKING (12 MO.) 09/22/2021 12:39 NORY [facility] [place] TYPE: Emergency COMPLAINT: - R SIDE LUNG/SHOULDER PAIN 09/01/2021 02:38 N[facility] [place] TYPE: Emergency COMPLAINT: - RIGHT SIDE PAIN DIAGNOSES: - Nicotine dependence, unspecified, uncomplicated - Other biology research assistant (current) drug therapy - Pain in thoracic spine INPATIENT VISIT TRACKING (12 MO.) 07/15/2021 15:22 NORY [facility] [place] TYPE: Observation COMPLAINT: - LEFT THYROID LOBECTOMY,POSS TOTAL THYROIDECTOMY DIAGNOSES: - Other nonspecific abnormal finding of lung field - Nontoxic single thyroid nodule - Nicotine dependence, cigarettes, uncomplicated - Other specified hypothyroidism - Malignant neoplasm of thyroid gland [email or web address]
[2021-09-22] MEDS ORDERED: IPRAT-ALBUT 0.5-3 ML INH (16:04)
--- NOTE | 2021-09-23 15:34 | EKG ---
[facility] [address] [facility] [place], [place] [address] Signed Normal sinus rhythm Normal ECG When compared with ECG of 01-SEP-2021 02:46, No significant change was found Confirmed by MEGAN VERA MD ([id number]) on 09/23/2021 3:34:31 PM Electronically Signed By: MEGAN VERA MD 09/23/21 1534 PATIENT NAME: SUNILJORDY GERA Electrocardiogram DATE OF : 50 PHYSICIAN: MEGAN VERA MD REPORT #: [id number] REPORT IS CONFIDENTIAL AND NOT TO BE RELEASED WITHOUT AUTHORIZATION
== END 2021-09-22 16:10 | disposition home or self-care (01) ==
LOC: ED 12:37
DX: R06.00 Dyspnea, unspecified (principal); R09.1 Pleurisy; Z85.118 Personal history of other malignant neoplasm of bronchus and lung; E07.9 Disorder of thyroid, unspecified; F17.200 Nicotine dependence, unspecified, uncomplicated; Z88.0 Allergy status to penicillin; Z88.8 Allergy status to other drugs, medicaments and biological substances; Z79.899 Other long term (current) drug therapy
CPT/HCPCS: 71045; 93005; 93010; 94640; 96372; 99285-25; J1170